=== PATIENT | male | born 1935 | race Caucasian/White ===

== ENCOUNTER 2018-12-02 00:52 | Inpatient (IN) | payer OTHER, MEDICARE ==
[~2018-12-02] VITALS: Ht 167.6 cm; Wt 73.6 kg
[~2018-12-02 00:52] MED LIST: ASPI81CH PO; ATOR40TA PO; CLOP75 PO; Coreg12.5 MG PO; Diovan40 MG PO; FURO20 PO; Hytrin2 MG PO; Isosorbide Mono30 MG PO; SPIR25 PO; Vitamin D2000 UNIT PO
[2018-12-02 01:26] LABS: BASOPHILS PERCENT AUTO 1 % (0-2); EOSINOPHILS ABSOLUTE AUTO 0.69 K/mm3 (0.00-0.68); EOSINOPHILS PERCENT AUTO 5 % (0-6); Hematocrit 41.6 % (37.0-53.0); IMMATURE GRAN ABSOLUTE AUTO 0.06 K/mm3 (0.00-0.10); IMMATURE GRAN PERCENT AUTO 0 % (0-1); LYMPHOCYTES PERCENT AUTO 12 % (21-46); MONOCYTES PERCENT AUTO 5 % (4-13); Mean Corpuscular HGB 32.5 pg (26.0-34.0); Mean Corpuscular HGB Conc 33.7 g/dL (31.5-36.5); Mean Corpuscular Volume 97 fL (80-100); Mean Platelet Volume 9.5 fL (9.1-12.4); NEUTROPHILS ABSOLUTE AUTO 11.16 K/mm3 (1.96-9.15); NEUTROPHILS PERCENT AUTO 77 % (41-73); Platelet Count 269 K/mm3 (150-400); RDW Coefficient Variation 13.2 % (11.7-14.2); RDW Standard Deviation 47.4 fL (35.1-46.3); Red Blood Cell Count 4.31 M/mm3 (4.30-5.90); White Blood Cell Count 14.41 K/mm3 (4.00-11.30)
[2018-12-02 01:45] LABS: Albumin, Blood 3.9 g/dL (3.4-5.0); Bilirubin, Total 0.3 mg/dL (0.1-1.0); Bun/Creatinine Ratio 30.7 (12.0-20.0); Creatinine, Blood 1.27 mg/dL (0.60-1.20); Globulin, Blood 3.9 g/dL (2.2-4.0); Potassium, Blood 3.7 mmol/L (3.5-5.5); Total Protein, Blood 7.8 g/dL (6.4-8.2)
--- NOTE | 2018-12-02 05:02 | NUR ---
12/02/18 0502 Shereen James PT RECEIVED ANTIBIOTIC IN ER
--- NOTE | 2018-12-02 07:12 | NUR ---
PT ARRIVES FROM OR TO ICU PACU STATUS. HAS SINCE BEEN PLACED TO PCU STATUS. PT WAS ALERT AND ORIENTED IN NO DISTRESS UPON PRESENTATION. INITIALLY WAS ON NON REBREATHER AND HAS BEEN SUBSEQUENTLY PLACED TO 2 L/M PER NASAL CANNULA. PT JOKES AROUND WITH STAFF. DENIES PAIN OR DYSPNEA. DOES HAVE ACTIVE BOWEL TONES. ABDOMINAL BINDER IN PLACE. WOUND VAC TO ABDOMINAL INCISION. AFEBRILE. DR GUEVARA IS GIVEN PT'S 'S PHONE NUMBER WHEREAS HE CALLS HER AND GIVES UPDATE. PT GOOD HISTORIAN EXCEPT TO REMEMBER SOME OF HIS HOME MEDICATIONS. WILL DEFER MED REC UNTIL PT'S ARRIVES. REPORT GIVEN TO ONCOMING RN.
--- NOTE | 2018-12-02 07:20 | NUR ---
ASSUMED CARE: REPORT RECEIVED FROM DREW Whitney RN. ASSUMED CARE OF THIS PT AT APPROX 0700. ON ASSESSMENT, THE PT IS A&O, PLEASANT & COOPERATIVE. HE DENIES PAIN AT THIS TIME & STS THAT HE IS "TIRED." PT CURRENTLY ON 2L NC W/ O2 SATS > 92%, DOES NOT WEAR O2 AT HOME. MONITOR SHOWS V-PACED RHYTHM W/ HR 50-70s. BP STABLE. WOUND VAC TO MIDLINE ABD IN PATENT. SMALL AMNT SS DRAINAGE NOTED TO DRESSING, PER REPORT, THIS IS UNCHANGED FROM TIME OF ADMISSION. BT x4, ABD SOFT, TENDER TO PALPATION. DE LEON IS PATENT/DRAINING CLEAR YELLOW URINE. SKIN OVERALL CDI. WILL CONTINUE TO MONITOR & UPDATE NEEDED.
--- NOTE | 2018-12-02 13:15 | NUR ---
DR FULLER / UPDATE: PROVIDER AT BEDSIDE TO SEE PT. STS OKAY TO BE SURG NO TELE STATUS. NO OTHER ORDERS AT THIS TIME. PT TOLERATING DIET OF CLEAR LIQUIDS WELL & HAS NO GI COMPLAINTS. WILL CONTINUE TO MONITOR & UPDATE NEEDED.
--- NOTE | 2018-12-02 17:39 | NUR ---
TRANSFER TO SURGICAL FLOOR / SHIFT SUMMARY: REPORT HAS BEEN GIVEN TO ZANDRA BERNAL TO ASSUME CARE ON SURG FLOOR. PT IS CURRENTLY EATING DINNER & WILL BE TRANSFERRED TO 224 ONCE COMPLETED. NO ACUTE CHANGES THIS SHIFT. PT REMAINS A&O, PLEASANT & COOPERATIVE. DR MATAMOROS HAS BEEN AT BEDSIDE TO SEE THE PT & HAS NO NEW ORDERS AT THIS TIME. TELE HAS BEEN REMOVED PER SURG STATUS ORDERS. PT NOW ON RA W/ O2 SATS > 90%. PT STS SOME PAIN TO ABD, MEDS PER EMAR. NO VOID SINCE DE LEON REMOVAL APPROX 1 HR AGO, PT AWARE TO NOTIFY STAFF IF FEELING URGE TO VOID. WOUND VAC TO MIDLINE INCISION REMAINS PATENT. WILL CONTINUE TO MONITOR UNTIL TIME OF TRANSFER.
--- NOTE | 2018-12-02 18:53 | NUR ---
SHIFT SUMMARY PT ARRIVED TO ROOM 224 AT APPROXIMATELY 1815. PT ALERT AND ORIENTED. ABLE TO TRANSFER TO FROM W/C TO BED WITH SBA. PT REPORTS PAIN IS MANAGED. TOLERATING PO. NO CHANGES SINCE ARRIVAL TO THE ROOM. WILL MONITOR UNTIL REPORT TO ONCOMING RN.
--- NOTE | 2018-12-03 05:07 | NUR ---
Pt alerta nd oriented x4. Vital signss table. Placed on supplemental oxygen at 2L per NC while asleep. Educated and encouraged use of IS. Complaints of moderate pain to abdomen, medicated as ordered. Voiding freely. Abdominal binder inplace. Antibiotics given and IVF infusing. Tolerating clear liquid diet.
[2018-12-03 05:32] LABS: BASOPHILS ABSOLUTE AUTO 0.06 K/mm3 (0.00-0.23); BASOPHILS PERCENT AUTO 0 % (0-2); EOSINOPHILS ABSOLUTE AUTO 0.05 K/mm3 (0.00-0.68); EOSINOPHILS PERCENT AUTO 0 % (0-6); Hemoglobin 11.6 g/dL (13.5-17.5); IMMATURE GRAN ABSOLUTE AUTO 0.08 K/mm3 (0.00-0.10); IMMATURE GRAN PERCENT AUTO 1 % (0-1); LYMPHOCYTES PERCENT AUTO 11 % (21-46); MONOCYTES ABSOLUTE AUTO 1.14 K/mm3 (0.16-1.47); MONOCYTES PERCENT AUTO 7 % (4-13); Mean Corpuscular HGB 32.4 pg (26.0-34.0); Mean Corpuscular HGB Conc 33.1 g/dL (31.5-36.5); Mean Corpuscular Volume 98 fL (80-100); Mean Platelet Volume 9.8 fL (9.1-12.4); NEUTROPHILS ABSOLUTE AUTO 13.56 K/mm3 (1.96-9.15); NEUTROPHILS PERCENT AUTO 81 % (41-73); Platelet Count 243 K/mm3 (150-400); RDW Coefficient Variation 13.3 % (11.7-14.2); RDW Standard Deviation 47.9 fL (35.1-46.3); Red Blood Cell Count 3.58 M/mm3 (4.30-5.90); White Blood Cell Count 16.69 K/mm3 (4.00-11.30)
[2018-12-03 05:52] LABS: Anion Gap 6 mmol/L (6-16); Blood Urea Nitrogen 25 mg/dL (8-24); CO2, Blood 27 mmol/L (21-32); Calcium, Blood 8.3 mg/dL (8.5-10.1); Chloride, Blood 109 mmol/L (98-108); Creatinine, Blood 1.04 mg/dL (0.60-1.20); Glomerular Filtration Rate >60 (60-); Glucose, Blood 128 mg/dL (70-99); Potassium, Blood 3.5 mmol/L (3.5-5.5); Sodium, Blood 142 mmol/L (136-145)
--- NOTE | 2018-12-03 17:25 | NUR ---
SUMMARY PATIENT OOB TO CHAIR AND UP IN ROOM THIS SHIFT- PATIENT STATES HE "JUST NOT UP TO WALKING OUT IN HALLWAY YET". PATIENT RE EDUCATED THROUGHOUT SHIFT ON NEED TO REQUEST PAIN MEDS WHEN PAIN REACHES LEVEL 3-4 AND NOT WAITING UNTIL PAIN HIGHER. ABD DRESSING AND DISPOSABLE WOUND VAC IN PLACE AND NO NEW DRAINAGE THIS SHIFT. PATIENT DENIES NAUSEA, TAKING SIPS OF CLEAR LIQUIDS
--- NOTE | 2018-12-04 05:20 | NUR ---
PATIENT HAS BEEN ABLE TO SLEEP FOR 1-2 HOURS AT A TIME, GIVEN ONE IV DOSE OF PAIN MEDICATION WITH ACCEPTABLE RESULTS. WOUND VAC TO MID ABDOMEN WITH BLOOD ON THE DRESSING, SAME AMOUNT LAST SHIFT. PATIENT HAS BEEN WORKING WELL WITH THE IS AND COUGHING AND DEEP BREATHING.
--- NOTE | 2018-12-04 07:53 | NUR ---
pt resting wakes for verbal stimuli pt reports some mild nausea off and on passing gas wound vac with dried serosang drainage
--- NOTE | 2018-12-04 09:39 | NUR ---
DR PERALTA BY TO SEE PT PT HAD JUST HIS H20 THIS AM WITH HIS MEDS DID NOT HAVE ANY OF HIS CL DIET DR PERALTA REQ JUST SIPS AND CHIPS REQ PO PAIN MEDS TO ENC AMB AND PT TO GET OOB TO CHAIR OK WITH SUNDAY
--- NOTE | 2018-12-04 12:22 | NUR ---
PT OOB TO CHAIR PO NORCO GIVEN WITH CRACKER
--- NOTE | 2018-12-04 15:41 | NUR ---
CARE ASSUMED OF PT AT APPROXIMATELY 1335. PT ALERT AND ORIENTED. PAIN MANGED. ABD DRESSING C/D/I. LUNG SOUNDS CLEAR. BOWEL SOUNDS PRESENT. PT REPORTS PASSING FLATUS. VSS. WILL MONITOR UNTIL REPORT TO ONCOMING RN.
--- NOTE | 2018-12-04 18:57 | NUR ---
SHIFT SUMMARY PT HAS DENIED PAIN SINCE CARE ASSUMED. PT HAS BEEN INDEPENDENT IN THE ROOM. NO ACUTE CHANGES TO REPORT AT THIS TIME. PT REPORTS PASSING FLATUS. PT TOLERATING SMALL AMOUNTS OF CLEAR LIQUID. WILL MONITOR UNTIL REPORT TO ONCOMING RN.
--- NOTE | 2018-12-05 04:02 | NUR ---
PATIENT HAS BEEN ABLE TO SLEEP MOST OF THE NIGHT. HIS MIDLINE INCISION IS SIMILAR TO YESTERDAY WITH NO MORE BLEEDING. HE IS INDEPENDENT IN THE ROOM. NEW IV PLACED.
[2018-12-05 05:40] LABS: Anion Gap 8 mmol/L (6-16); Blood Urea Nitrogen 23 mg/dL (8-24); Bun/Creatinine Ratio 24.3 (12.0-20.0); CO2, Blood 25 mmol/L (21-32); Calcium, Blood 8.3 mg/dL (8.5-10.1); Chloride, Blood 109 mmol/L (98-108); Creatinine, Blood 0.95 mg/dL (0.60-1.20); Glomerular Filtration Rate >60 (60-); Glucose, Blood 114 mg/dL (70-99); Potassium, Blood 3.7 mmol/L (3.5-5.5); Sodium, Blood 142 mmol/L (136-145)
[2018-12-05 05:51] LABS: BASOPHILS ABSOLUTE AUTO 0.06 K/mm3 (0.00-0.23); BASOPHILS PERCENT AUTO 0 % (0-2); EOSINOPHILS ABSOLUTE AUTO 0.07 K/mm3 (0.00-0.68); EOSINOPHILS PERCENT AUTO 0 % (0-6); Hematocrit 35.2 % (37.0-53.0); Hemoglobin 11.4 g/dL (13.5-17.5); IMMATURE GRAN ABSOLUTE AUTO 0.11 K/mm3 (0.00-0.10); IMMATURE GRAN PERCENT AUTO 1 % (0-1); LYMPHOCYTES ABSOLUTE AUTO 1.61 K/mm3 (0.84-5.20); LYMPHOCYTES PERCENT AUTO 10 % (21-46); MONOCYTES ABSOLUTE AUTO 1.18 K/mm3 (0.16-1.47); MONOCYTES PERCENT AUTO 7 % (4-13); Mean Corpuscular HGB Conc 32.4 g/dL (31.5-36.5); Mean Corpuscular Volume 99 fL (80-100); Mean Platelet Volume 10.1 fL (9.1-12.4); NEUTROPHILS ABSOLUTE AUTO 13.31 K/mm3 (1.96-9.15); NEUTROPHILS PERCENT AUTO 81 % (41-73); Platelet Count 267 K/mm3 (150-400); RDW Coefficient Variation 13.5 % (11.7-14.2); RDW Standard Deviation 48.6 fL (35.1-46.3); Red Blood Cell Count 3.56 M/mm3 (4.30-5.90); White Blood Cell Count 16.34 K/mm3 (4.00-11.30)
--- NOTE | 2018-12-05 15:43 | NUR ---
DISCHARGE SUMMARY PT A&OX4, LEFT FLOOR VIA WC WITH TO GO HOME, WITH ALL PERSONAL POSSESSIONS INCLUDING DISCHARGE PACKET AND 1 NARC SCRIPT AND 1 ABX SCRIPT. DC INSTRUCTIONS PROVIDED. PT AND REP UNDERSTANDING THOSE INSTRUCTIONS. IV DC'D.
--- NOTE | 2018-12-05 20:40 | NUR ---
SUMMARY NO ACUTE CHANGES NOTED THROUGH THE DAY. DRSG REMAINS INTACT, NO NEW DRAINAGE PRESENT. PT HAS BEEN C/O NAUSEA, HE WAS ENCOURAGED TO AMBULATE MORE FREQUENTLY IN THE HALLS. HE WAS COMPLIANT. HE CONTINUES TO PASS FLATUS AND HAD A MEDIUM BM. ZOFRAN GIVEN PER REQUEST X2. PAIN MEDICATED X1, K PAD SET UP FOR NECK PAIN. VOIDING WNL. IV SL. TOLERATING SMALL AMOUNTS OF CLEAR FLUIDS AT A TIME. REPORT GIVEN TO JANICE RN. CALL LIGHT IN REACH
--- NOTE | 2018-12-06 12:09 | NUR ---
PT REFUSED CL LUNCH. REPORTS TOLERATING DIET, "IT JUST DOESNT SOUND GOOD." DENIES N/V; REPORTS PASSING FLATUS AND HAVING A BM TODAY.
--- NOTE | 2018-12-06 13:13 | NUR ---
DR. MATAMOROS IN TO SEE PT. PLAN FOR DISCHARGE TODAY.
--- NOTE | 2018-12-06 15:42 | NUR ---
DISCHARGED DC'D IV, CATHETER INTACT. REMOVED AMY DRESSING PER DR MATAMOROS'S VERBAL INSTRUCTION AND PLACED MEDIPORE DRESSING. REVIEWED DC INSTRUCTIONS; PT VERBALIZED UNDERSTANDING. NOW GETTING DRESSED. RIDE AT BEDSIDE.
--- NOTE | 2018-12-06 15:52 | NUR ---
PT LEFT UNIT IN WC.
== END 2018-12-06 15:52 | disposition home or self-care (01) | DRG 330 ==
LOC: ER 00:52 → SURS 04:20 → ICUE 06:17 → SURS 18:20
PROVIDERS: Emergency Medicine; Internal Medicine; ADMIT Surgery
PROC: 0DT80ZZ Resection of Small Intestine, Open Approach (ICD-10-PCS; principal; 2018-12-02 03:30)
DX: K55.019 Acute (reversible) ischemia of small intestine, extent unspecified (principal); I50.32 Chronic diastolic (congestive) heart failure; I25.10 Atherosclerotic heart disease of native coronary artery without angina pectoris; I73.9 Peripheral vascular disease, unspecified; Z87.891 Personal history of nicotine dependence; Z66 Do not resuscitate; I11.0 Hypertensive heart disease with heart failure; E78.5 Hyperlipidemia, unspecified
CPT/HCPCS: 36415; 71045; 74176; 80048; 80053; 83690; 85025; 88307; 93005; 93010; 96361; 96365; 96367; 96375; 96376; 99285-25; A9270; A9270-GY; J0692; J0744; J1100; J1170; J1650; J1885; J2370; J2405; J2704; J2710; J3010; J3480; J7030; J7120